=== PATIENT | male | born 1950 | race Caucasian/White ===

== ENCOUNTER 2016-08-09 11:14 | Day surgery (SDC) | payer BC ==
--- NOTE | ~2016-08-09 | EGD ---
EGD REPORT [facility] [address] [id number] NAME: HARLAN MOTLEY : [birth year] STATUS : [facility]#: [id number] AGE: 66 ADM/REG DATE : 08/09/16 MR#: [id number] REPORT SERV DATE: 08/09/16 DICTATED BY: CHELO DAVILA DATE: 08/09/16 REPORT STATUS : Draft TRANSCRIBED BY: [facility] DATE: 08/09/16 Endoscopy Center Patient Name: Harlan Motley Date of : 1950 Attending MD: CHELO DAVILA MD Procedure Date No Time: 08/09/2016 Procedure: Upper GI endoscopy Indications: Dysphagia Referring MD: KATERINA SZYMANSKI Medicines: See the Anesthesia note for documentation of the administered medications Complications: No immediate complications. Procedure: Pre-Anesthesia Assessment: - ASA Grade Assessment: III - A patient with severe systemic disease. After obtaining informed consent, the endoscope was passed under direct vision. Throughout the procedure, the patient's blood pressure, pulse, and oxygen saturations were monitored continuously. The GIF [id number] was introduced through the mouth, and advanced to the second part of duodenum. The upper GI endoscopy was accomplished without difficulty. The patient tolerated the procedure well. Findings: The examined duodenum was normal. The entire examined stomach was normal. The cardia and gastric fundus were normal on retroflexion. A small hiatus hernia was present. A mild Schatzki ring (acquired) was found at the gastroesophageal junction. A guidewire was placed and the scope was withdrawn. Dilation was performed with a Savary dilator with no resistance at 48 Fr. Impression: - Normal examined duodenum. - Normal stomach. - Hiatus hernia. - Mild Schatzki ring. Dilated. Recommendation: - Patient has a contact number available for emergencies. The signs and symptoms of potential delayed complications were discussed with the patient. Return to normal activities tomorrow. Written discharge instructions were provided to the patient. - Clear liquid diet today. - Clear liquids today, soft diet tomorrow, regular diet EGD REPORT [address] [address] NAME: HARLAN MOTLEY : [birth year] STATUS : [facility]#: [id number] AGE: 66 ADM/REG DATE : 08/09/16 MR#: [id number] REPORT SERV DATE: 08/09/16 DICTATED BY: CHELO DAVILA DATE: 08/09/16 REPORT STATUS : Draft TRANSCRIBED BY: [place] DATE: 08/09/16 the following day - Continue present medications. Procedure Code(s): --- Professional --- 95408, Esophagogastroduodenoscopy, flexible, transoral; with insertion of guide wire followed by passage of dilator(s) through esophagus over guide wire Diagnosis Code(s): --- Professional --- K44.9, Diaphragmatic hernia without obstruction or gangrene K22.2, Esophageal obstruction R13.10, Dysphagia, unspecified CPT copyright 2013 [employer]. All rights reserved. The codes documented in this report are preliminary and upon shake out worker review may be revised to meet current compliance requirements. Chelo Davila MD CHELO DAVILA MD 08/09/2016 1:10 PM This report has been signed electronically. Number of Addenda: 0 Note Initiated On: 08/09/2016 12:46 PM Scope Withdrawal Time 0 hours 0 minutes 0 seconds [address] [id number]
[~2016-08-09 11:14] MED LIST: ASAB PO; FLOMAX4 PO; GLUCOTROL5 PO; GLUCPH PO; PRAVACHOL40 MG PO; [UNRECOGNIZED DRUG - REMARK] PO
== END 2016-08-09 23:59 | disposition home or self-care (01) ==
LOC: DMU 11:14
PROVIDERS: Internal Medicine Gastroenterology
PROC: 0D747ZZ Dilation of Esophagogastric Junction, Via Natural or Artificial Opening (ICD-10-PCS; principal; 2016-08-09 13:00)
DX: K44.9 Diaphragmatic hernia without obstruction or gangrene (principal); K22.2 Esophageal obstruction; R13.10 Dysphagia, unspecified; E11.9 Type 2 diabetes mellitus without complications; E78.00 Pure hypercholesterolemia, unspecified; N40.0 Benign prostatic hyperplasia without lower urinary tract symptoms; N47.1 Phimosis; G47.33 Obstructive sleep apnea (adult) (pediatric); Z87.891 Personal history of nicotine dependence; Z98.890 Other specified postprocedural states; Z87.442 Personal history of urinary calculi; Z79.899 Other long term (current) drug therapy; Z79.891 Long term (current) use of opiate analgesic
CPT/HCPCS: 82962